=== PATIENT | female | born 1995 | race Hispanic/Latino ===

== ENCOUNTER 2021-01-09 11:15 | Emergency (ER) | payer OTHER ==
[2021-01-09] MEDS ORDERED: Lidocaine 1% (PF) 30 ML VIAL ONE (13:35)
[2021-01-09] MEDS ORDERED: Boostrix 0.5 ML (Tdap) VIAL ONE (13:36)
[2021-01-09] MEDS ORDERED: Bacitracin 1 PK ONE (15:17)
== END 2021-01-09 15:30 | disposition home or self-care (01) ==
LOC: ERS 11:15
DX: S61.217A Laceration without foreign body of left little finger without damage to nail, initial encounter (principal); Z23 Encounter for immunization; W26.8XXA Contact with other sharp object(s), not elsewhere classified, initial encounter; Y99.0 Civilian activity done for income or pay
CPT/HCPCS: 12001; 90471; 90715; J2001

== ENCOUNTER 2021-01-20 09:04 | Emergency (ER) | END 2021-01-20 10:32 | disposition home or self-care (01) | LOC: ERS 09:04 | DX: S61.411D Laceration without foreign body of right hand, subsequent encounter (principal) ==